=== PATIENT | male | born 1955 | race Caucasian/White ===

== ENCOUNTER 2016-03-04 09:44 | Emergency (ER) | payer OTHER ==
[~2016-03-04] VITALS: Ht 172.7 cm; Wt 62.6 kg
[~2016-03-04 09:44] MED LIST: CLEOCIN300 MG PO; FLEXERIL10 MG PO; NAPROSYN500 MG PO; PREDNISONE10 M1 PO
[2016-03-04 11:15] LABS: HEMATOCRIT 36.4 % (38.0-50.0); MCH 32.7 PG (29.0-34.0); MCHC 33.8 G/DL (30.0-36.0); MCV 96.8 FL (86-99); MEAN PLAT.VOLUME 11.5 uM^3 (9.0-12.4); PLATELET COUNT 86 K/uL (156-360); RBC DIS.WIDTH-CV 13.5 % (11.8-14.6); RBC DIS.WIDTH-SD 46.1 % (39-53); RED BLOOD COUNT 3.76 M/uL (4.00-5.50); WHITE BLOOD COUNT 5.1 K/uL (4.1-10.2)
[2016-03-04 11:25] LABS: CHLORIDE 105 mEq/L (99-109); POTASSIUM 4.3 mEq/L (3.7-5.4); SODIUM 138 mEq/L (136-147)
[2016-03-04 11:27] LABS: GLUCOSE 88 mg/dL (70-99)
[2016-03-04 11:29] LABS: ANION GAP 9 MEQ/L (2-14); TOTAL BILIRUBIN 0.6 mg/dL (0.0-1.0)
[2016-03-04 11:31] LABS: ALKALINE PHOSPHATASE 163 IU/L (3-129); GFR ESTIMATE (CALCULATED) > 59 mL/min/
[2016-03-04 11:32] LABS: UREA NITROGEN (BUN) 17 mg/dL (9-23)
[2016-03-04] MEDS ORDERED: PERCOCET 5/31 TABLET PO (14:51)
[2016-03-04] MEDS ORDERED: GABAPENTIN300 MG PO (14:51)
[2016-03-04] MEDS ORDERED: CLINDAMYCIN HC300 MG PO (14:51)
[2016-03-04 15:13] VITALS: BP 111/88
== END 2016-03-04 15:21 | disposition home or self-care (01) ==
LOC: EME 09:44
PROVIDERS: Nurse Practitioner Family
DX: S81.801A Unspecified open wound, right lower leg, initial encounter (principal); L08.9 Local infection of the skin and subcutaneous tissue, unspecified; M79.661 Pain in right lower leg; B19.20 Unspecified viral hepatitis C without hepatic coma; F17.200 Nicotine dependence, unspecified, uncomplicated
CPT/HCPCS: 80053; 85027; 87070; 87075; 87077; 87147; 87186; 87205; 99281; 99285; C9113; J1170; J1885; J2405; J7030; J7040

== ENCOUNTER 2016-04-25 22:59 | Emergency (ER) | payer SELFPAY ==
[~2016-04-25] VITALS: Ht 172.7 cm; Wt 63.5 kg
[~2016-04-25 22:59] MED LIST changes: +CLINDAMYCIN HC300 MG PO; +GABAPENTIN300 MG PO; +PERCOCET 5/31 TABLET PO
[2016-04-26 00:22] LABS: HEMATOCRIT 37.9 % (38.0-50.0); MCH 33.2 PG (29.0-34.0); MCHC 34.8 G/DL (30.0-36.0); MCV 95.2 FL (86-99); MEAN PLAT.VOLUME 11.2 uM^3 (9.0-12.4); PLATELET COUNT 112 K/uL (156-360); RBC DIS.WIDTH-CV 14.2 % (11.8-14.6); RBC DIS.WIDTH-SD 46.9 % (39-53); RED BLOOD COUNT 3.98 M/uL (4.00-5.50); WHITE BLOOD COUNT 5.6 K/uL (4.1-10.2)
[2016-04-26 00:30] LABS: CHLORIDE 103 mEq/L (99-109)
[2016-04-26 00:31] LABS: POTASSIUM 3.8 mEq/L (3.7-5.4); SODIUM 141 mEq/L (136-147)
[2016-04-26 00:32] LABS: GLUCOSE 99 mg/dL (70-99)
[2016-04-26 00:34] LABS: ANION GAP 12 MEQ/L (2-14)
[2016-04-26 00:35] LABS: SERUM ETHYL ALCOHOL 221 mg/dL
[2016-04-26 00:36] LABS: GFR ESTIMATE (CALCULATED) > 59 mL/min/
[2016-04-26 00:37] LABS: UREA NITROGEN (BUN) 11 mg/dL (9-23)
[2016-04-26 00:46] LABS: ADD MIUA? NO; BILIRUBIN NEGATIVE; BLOOD NEGATIVE; COLOR STRAW ((YELLOW)); GLUCOSE (STRIP) NEGATIVE; KETONES NEGATIVE; LEUKOCYTES NEGATIVE; NITRITE NEGATIVE; PROTEIN (STRIP) NEGATIVE; SPECIFIC GRAVITY 1.003 (1.000-1.030); UCUL ADDED? NO; UROBILINOGEN 0.2 MG/DL (0.2-1.0)
[2016-04-26 00:56] LABS: AMPHETAMINE NEGATIVE (500 ng/mL); BARBITURATES NEGATIVE (200 ng/mL); BENZODIAZEPINES NEGATIVE (150 ng/mL); COCAINE NEGATIVE (150 ng/mL); METHADONE NEGATIVE (200 ng/mL); METHAMPHETAMINE NEGATIVE (500 ng/mL); OPIATES (MORPHINE) NEGATIVE (100 ng/mL); OXYCODONE NEGATIVE (100 ng/mL); PHENCYCLIDINE NEGATIVE (25 ng/mL); PROPOXYPHENE NEGATIVE (300 ng/mL); THC CANNABINOIDS NEGATIVE (50 ng/mL); TRICYCLIC ANTIDEPRESSANTS NEGATIVE (300 ng/mL)
[2016-04-26 00:57] LABS: INTERNAL CONTROLS VALID? YES
[2016-04-26 01:01] LABS: TOTAL BILIRUBIN 0.4 mg/dL (0.0-1.0)
[2016-04-26 01:02] LABS: ALKALINE PHOSPHATASE 177 IU/L (3-129)
[2016-04-26 01:05] LABS: DIRECT BILIRUBIN 0.3 mg/dL (0.0-0.3)
[2016-04-26 01:06] LABS: LIPASE 55 U/L (1.0-51.0)
[2016-04-26 04:35] VITALS: BP 123/80
== END 2016-04-26 04:36 | disposition home or self-care (01) ==
LOC: EME 22:59
PROVIDERS: Physician Assistant
DX: F10.129 Alcohol abuse with intoxication, unspecified (principal); Y90.7 Blood alcohol level of 200-239 mg/100 ml; R20.2 Paresthesia of skin; R79.89 Other specified abnormal findings of blood chemistry; J44.9 Chronic obstructive pulmonary disease, unspecified; F17.200 Nicotine dependence, unspecified, uncomplicated
CPT/HCPCS: 70450; 71020; 74177; 80048; 80076; 81003; 83690; 85027; 93005; 99281; 99285; G0480; J7030

== ENCOUNTER 2016-04-29 13:56 | Emergency (ER) | payer SELFPAY ==
[~2016-04-29] VITALS: Ht 172.7 cm; Wt 60.7 kg
[2016-04-29 15:00] VITALS: BP 128/97
== END 2016-04-29 15:36 | disposition home or self-care (01) ==
LOC: EME 13:56
DX: K91.873 Postprocedural seroma of a digestive system organ or structure following other procedure (principal); M54.9 Dorsalgia, unspecified; G89.29 Other chronic pain; F17.200 Nicotine dependence, unspecified, uncomplicated
CPT/HCPCS: 99281; 99284

== ENCOUNTER 2016-05-06 10:02 | Emergency (ER) | payer SELFPAY ==
[~2016-05-06] VITALS: Ht 172.7 cm; Wt 61.0 kg
[2016-05-06 10:57] LABS: EOSINOPHIL (%) 2.4 % (0-5); EOSINOPHIL COUNT 0.1 K/uL (0-0.3); HEMATOCRIT 39.2 % (38.0-50.0); IMMATURE GRANULOCYTE (%) 0.2 % (0.0-0.7); INSTRUMENT ABS NEUTROPHIL CT 2.3 K/uL; LYMPHOCYTE COUNT 1.4 K/uL (1.0-2.8); MCH 33.1 PG (29.0-34.0); MCHC 33.7 G/DL (30.0-36.0); MCV 98.2 FL (86-99); MEAN PLAT.VOLUME 11.3 uM^3 (9.0-12.4); MONOCYTE (%) 8.7 % (3-12); MONOCYTE COUNT 0.4 K/uL (0-0.8); NEUTROPHIL (%) 54.7 % (45-76); NEUTROPHIL COUNT 2.3 K/uL (1.8-6.4); RBC DIS.WIDTH-CV 14.5 % (11.8-14.6); RBC DIS.WIDTH-SD 52.3 % (39-53); RED BLOOD COUNT 3.99 M/uL (4.00-5.50); WHITE BLOOD COUNT 4.1 K/uL (4.1-10.2)
[2016-05-06 10:58] LABS: PLATELET COUNT 73 K/uL (156-360)
[2016-05-06 11:08] LABS: CHLORIDE 105 mEq/L (99-109); SODIUM 140 mEq/L (136-147)
[2016-05-06 11:10] LABS: GLUCOSE 125 mg/dL (70-99)
[2016-05-06 11:11] LABS: ANION GAP 11 MEQ/L (2-14)
[2016-05-06 11:13] LABS: GFR ESTIMATE (CALCULATED) > 59 mL/min/
[2016-05-06 11:14] LABS: UREA NITROGEN (BUN) 14 mg/dL (9-23)
[2016-05-06 12:52] LABS: ERTH.SED.RATE 47 MM/HR (0-20)
[2016-05-06 15:23] VITALS: BP 117/72
== END 2016-05-06 15:32 | disposition home or self-care (01) ==
LOC: EME 10:02
PROVIDERS: Emergency Medicine
DX: H57.12 Ocular pain, left eye (principal); G89.29 Other chronic pain; R51 Headache; B19.20 Unspecified viral hepatitis C without hepatic coma; F17.200 Nicotine dependence, unspecified, uncomplicated
CPT/HCPCS: 70551; 80048; 85025; 85651; 99281; 99284